=== PATIENT | female | born 1955 | race Caucasian/White ===

== ENCOUNTER 2017-09-28 17:43 | Observation (INO) | payer OTHER ==
[~2017-09-28] VITALS: Ht 160 cm; Wt 68.6 kg
[~2017-09-28 17:43] MED LIST: ADVAIR 100/501 DISK IH; ADVAIR HFA 115-28 GM; ADVIL,NUPRIN,M200 MG PO; AMITRIPTYLINE H10 MG PO; AMLODIPINE BESY10 MG PO; AMLODIPINE BESYL5 MG PO; AMOXICILLIN500 MG PO; ASPIR 8181 M1 PO; ASPIR-LOW81 MG PO; ASPIR-TRIN325 MG PO; ASPIRIN EC325 MG PO; ASPIRIN81 M2 PO; ATORVASTATIN CA10 MG PO; ATORVASTATIN CA40 MG PO; Advair HFA 115/21 IH; BACTRIM,SEPT1 TABLET PO; CARAFATE1 GM PO; CLOPIDOGREL75 MG PO; DAILY VITAMIN1 EAC8 PO; DOCUSATE SODIU100 MG PO; DOXYCYCLINE HY100 MG PO; ENDOCET 5-3251 EACH PO; FAMOTIDINE20 MG PO; FERREX 150150 MG PO; FERROUS SULFAT325 MG PO; FLONASE16 GM NS; FLORASTOR250 MG PO; Flagyl PO; GABAPENTIN100 MG PO; GABAPENTIN300 MG PO; HYDREA500 MG PO; HYDROXYUREA500 MG PO; INDOMETHACIN50 MG PO; IRON325 M1 PO; KEFLEX500 MG PO; LISINOPRIL10 MG PO; LO-DOSE ASPIRIN81 M1 PO; LO-DOSE ASPIRIN81 M2 PO; LOPRESSOR25 MG PO; Levaquin PO; MECLIZINE HCL25 M2 NG; MECLIZINE HCL25 MG PO; METOPROLOL TAR100 MG PO; METOPROLOL TART25 MG PO; MOTRIN IB200 MG PO; MULTIPLE VITAM1 EACH PO; Medrol PO; NEURONTIN100 MG PO; NICODERM CQ1 EAC1 TD; NICODERM CQ1 EAC2 TD; NICOTINE PATCH1 EAC2 TD; NIFEREX-150,FE150 MG PO; NOHOMEMEDS; OxyCONTIN PO; PANTOPRAZOLE SO40 MG PO; PLAVIX75 MG PO; PRAVASTATIN SOD40 MG PO; PREDNISONE20 M1 PO; PREDNISONE20 MG PO; PROAIR HFA8.5 GM IH; PROTONIX40 MG PO; RANITIDINE HCL150 MG PO; Remeron PO; SENNA S TABLET1 EACH PO; SEPTRA DS TABL1 EACH PO; SIMVASTATIN10 M1 PO; ST. JOSEPH ASPI81 MG PO; SUCRALFATE1 GM/10 ML PO; SULFAMETHOXAZO1 EACH PO; THERAGRAN1 TABLET PO; TYLENOL ARTHRI650 MG PO; TYLENOL EXTRA500 MG PO; TYLENOL REGULA325 MG PO; TYLENOL WITH C1 EACH PO; VITAMIN C250 MG PO; ZESTRIL30 MG PO; ZITHROMAX Z-PA250 MG PO; ZITHROMAX250 MG PO; ZOCOR10 M1 PO; ZOCOR10 MG PO; [UNRECOGNIZED DRUG - OTHER] PO; [UNRECOGNIZED DRUG - REMARK]; [UNRECOGNIZED DRUG - REMARK] PO; oxyCODONE PO
[2017-09-28 19:12] LABS: HEMATOCRIT 48.3 % (36.0-46.0); HEMOGLOBIN 15.8 G/DL (11.9-15.5); MCH 32.2 PG (29.0-34.0); MCHC 32.7 G/DL (30.0-36.0); MCV 98.4 FL (83-99); RBC DIS.WIDTH-CV 13.9 % (11.8-14.6); RBC DIS.WIDTH-SD 50.4 % (39-53); RED BLOOD COUNT 4.91 M/uL (3.80-5.20); WHITE BLOOD COUNT 10.7 K/uL (4.1-10.2)
[2017-09-28 19:13] LABS: CHLORIDE 104 mEq/L (99-109); POTASSIUM 4.5 mEq/L (3.7-5.4); SODIUM 142 mEq/L (136-147)
[2017-09-28 19:15] LABS: GLUCOSE 99 mg/dL (70-99)
[2017-09-28 19:19] LABS: CREATININE 1.3 mg/dL (0.6-1.3); GFR ESTIMATE (CALCULATED) 44 mL/min/
[2017-09-28 19:20] LABS: UREA NITROGEN (BUN) 20 mg/dL (9-23)
[2017-09-28 19:27] LABS: TROP-I INTERPRETATION NEGATIVE; TROPONIN-I 0.01 ng/mL (0.0-0.30)
[2017-09-28 20:14] LABS: PLAT.SUFFICIENCY INCREASED
[2017-09-28 20:17] LABS: PLATELET COUNT 1096 K/uL (156-360)
[2017-09-28 22:28] LABS: APPEARANCE CLEAR ((CLEAR)); BILIRUBIN NEGATIVE; BLOOD NEGATIVE; COLOR YELLOW ((YELLOW)); GLUCOSE (STRIP) NEGATIVE; KETONES NEGATIVE; LEUKOCYTES LARGE; NITRITE NEGATIVE; PROTEIN (STRIP) 30; SPECIFIC GRAVITY 1.006 (1.000-1.030); UROBILINOGEN 0.2 MG/DL (0.2-1.0)
[2017-09-28 22:35] LABS: BACTERIA 2+ /HPF; EPITHELIAL CELLS RARE /HPF; MUCUS TRACE /LPF; RED BLOOD CELLS 0-5 /HPF (0-5); WHITE BLOOD CELLS 20-30 /HPF (0-5)
[2017-09-28] MEDS ORDERED: CHLORTHALIDONE25 MG PO (23:27)
[2017-09-29 02:04] VITALS: BP 142/79
[2017-09-29 02:10] LABS: TROP-I INTERPRETATION NEGATIVE; TROPONIN-I 0.01 ng/mL (0.0-0.30)
[2017-09-29 07:51] VITALS: BP 146/73
[2017-09-29 07:56] LABS: TROP-I INTERPRETATION NEGATIVE; TROPONIN-I < 0.01 ng/mL (0.0-0.30)
[2017-09-29 08:42] LABS: HEMATOCRIT 50.3 % (36.0-46.0); HEMOGLOBIN 15.9 G/DL (11.9-15.5); MCH 31.7 PG (29.0-34.0); MCHC 31.6 G/DL (30.0-36.0); MCV 100.4 FL (83-99); RBC DIS.WIDTH-SD 51.5 % (39-53); RED BLOOD COUNT 5.01 M/uL (3.80-5.20); WHITE BLOOD COUNT 10.7 K/uL (4.1-10.2)
[2017-09-29 09:58] LABS: PLAT.SUFFICIENCY INCREASED
[2017-09-29 10:15] LABS: PLATELET COUNT 1117 K/uL (156-360)
[2017-09-29 11:36] VITALS: BP 111/58
[2017-09-29 16:11] VITALS: BP 121/64
[2017-09-29 19:00] VITALS: BP 121/68
[2017-09-30 00:38] VITALS: BP 113/53
[2017-09-30 04:25] VITALS: BP 108/63
[2017-09-30 05:40] LABS: BASOPHIL (%) 1.9 % (0-1); BASOPHIL COUNT 0.1 K/uL (0-0.1); EOSINOPHIL (%) 4.1 % (0-5); EOSINOPHIL COUNT 0.3 K/uL (0-0.3); HEMATOCRIT 42.7 % (36.0-46.0); IMMATURE GRANULOCYTE (%) 0.3 % (0.0-0.7); LYMPHOCYTE (%) 18.3 % (15-42); LYMPHOCYTE COUNT 1.3 K/uL (1.0-2.8); MCH 31.5 PG (29.0-34.0); MCHC 32.1 G/DL (30.0-36.0); MCV 98.2 FL (83-99); MONOCYTE (%) 7.4 % (3-12); MONOCYTE COUNT 0.5 K/uL (0-0.8); NEUTROPHIL COUNT 4.8 K/uL (1.8-6.4); PLATELET COUNT 810 K/uL (156-360); RBC DIS.WIDTH-SD 50.8 % (39-53); RED BLOOD COUNT 4.35 M/uL (3.80-5.20)
[2017-09-30 05:43] LABS: HEMOGLOBIN 13.7 G/DL (11.9-15.5)
[2017-09-30 05:55] LABS: CHLORIDE 107 MEQ/L (99-109); CREATININE 1.4 MG/DL (0.6-1.3); GFR ESTIMATE (CALCULATED) 41 mL/min/; GLUCOSE 90 mg/dL (70-99); POTASSIUM 4.5 MEQ/L (3.7-5.4); SODIUM 140 MEQ/L (136-147); UREA NITROGEN (BUN) 29 mg/dL (9-23)
[2017-09-30 07:20] VITALS: BP 157/84
[2017-09-30] MEDS ORDERED: BACTRIM,SEPT1 TABLET PO (09:15)
[2017-09-30 11:46] VITALS: BP 132/60
[2017-09-30 12:32] LABS: CREATININE 1.3 MG/DL (0.6-1.3)
== END 2017-09-30 16:03 | disposition home or self-care (01) ==
LOC: EME 17:43 → EDOF 09-29 00:08 → ENRESERV 09-29 00:12 → 4SOUTH 09-29 01:21
PROVIDERS: Emergency Medicine; Internal Medicine; Physician Assistant
DX: R07.89 Other chest pain (principal); D47.3 Essential (hemorrhagic) thrombocythemia; N39.0 Urinary tract infection, site not specified; M50.10 Cervical disc disorder with radiculopathy, unspecified cervical region; I69.351 Hemiplegia and hemiparesis following cerebral infarction affecting right dominant side; I69.322 Dysarthria following cerebral infarction; I10 Essential (primary) hypertension; R51 Headache; E04.1 Nontoxic single thyroid nodule; K21.9 Gastro-esophageal reflux disease without esophagitis; J44.9 Chronic obstructive pulmonary disease, unspecified; Z90.49 Acquired absence of other specified parts of digestive tract; Z89.421 Acquired absence of other right toe(s); Z89.411 Acquired absence of right great toe; Z87.891 Personal history of nicotine dependence; Z79.82 Long term (current) use of aspirin; Z88.1 Allergy status to other antibiotic agents
CPT/HCPCS: 70450; 71046; 72125; 74176; 80048; 81003; 82565; 84484; 85025; 85027; 93005; 99281; 99285; G0378; J0696; J1644; J2405; J7030

== ENCOUNTER 2017-10-29 14:35 | Inpatient (IN) | payer OTHER ==
[~2017-10-29] VITALS: Ht 165.1 cm; Wt 66.6 kg
[~2017-10-29 14:35] MED LIST changes: +CHLORTHALIDONE25 MG PO
[2017-10-29 16:14] LABS: HEMOGLOBIN 15.4 G/DL (11.9-15.5); MCH 31.3 PG (29.0-34.0); MCHC 32.8 G/DL (30.0-36.0); MCV 95.5 FL (83-99); PLATELET COUNT 750 K/uL (156-360); RBC DIS.WIDTH-CV 15.7 % (11.8-14.6); RBC DIS.WIDTH-SD 53.8 % (39-53); RED BLOOD COUNT 4.92 M/uL (3.80-5.20); WHITE BLOOD COUNT 8.4 K/uL (4.1-10.2)
[2017-10-29 16:24] LABS: CHLORIDE 103 mEq/L (99-109); POTASSIUM 3.7 mEq/L (3.7-5.4); SODIUM 140 mEq/L (136-147)
[2017-10-29 16:26] LABS: GLUCOSE 118 mg/dL (70-99)
[2017-10-29 16:29] LABS: SERUM ETHYL ALCOHOL < 10 mg/dL
[2017-10-29 16:30] LABS: CREATININE 1.4 mg/dL (0.6-1.3); GFR ESTIMATE (CALCULATED) 41 mL/min/
[2017-10-29 16:31] LABS: UREA NITROGEN (BUN) 18 mg/dL (9-23)
[2017-10-29 18:12] LABS: APPEARANCE CLEAR ((CLEAR)); BILIRUBIN NEGATIVE; BLOOD NEGATIVE; COLOR YELLOW ((YELLOW)); GLUCOSE (STRIP) NEGATIVE; KETONES NEGATIVE; LEUKOCYTES NEGATIVE; NITRITE NEGATIVE; PROTEIN (STRIP) 30; SPECIFIC GRAVITY 1.006 (1.000-1.030); UCUL ADDED? NO; UROBILINOGEN 0.2 MG/DL (0.2-1.0)
[2017-10-29 18:20] LABS: AMPHETAMINE NEGATIVE (500 ng/mL); BARBITURATES NEGATIVE (200 ng/mL); BENZODIAZEPINES NEGATIVE (150 ng/mL); BUPRENORPHINE NEGATIVE (10 ng/mL); COCAINE NEGATIVE (150 ng/mL); METHADONE NEGATIVE (200 ng/mL); METHAMPHETAMINE NEGATIVE (500 ng/mL); OPIATES (MORPHINE) NEGATIVE (100 ng/mL); OXYCODONE NEGATIVE (100 ng/mL); PHENCYCLIDINE NEGATIVE (25 ng/mL); PROPOXYPHENE NEGATIVE (300 ng/mL); THC CANNABINOIDS NEGATIVE (50 ng/mL); TRICYCLIC ANTIDEPRESSANTS NEGATIVE (300 ng/mL)
[2017-10-29 20:27] VITALS: BP 131/78
[2017-10-30 08:05] VITALS: BP 105/57
[2017-10-30 16:22] VITALS: BP 136/66
[2017-10-31 07:48] VITALS: BP 112/70
[2017-10-31 15:39] VITALS: BP 140/70
[2017-11-01 07:29] VITALS: BP 124/74
[2017-11-01 14:51] VITALS: BP 111/55
[2017-11-02 08:31] VITALS: BP 115/64
[2017-11-02 16:55] VITALS: BP 121/66
[2017-11-03 08:26] VITALS: BP 157/78
[2017-11-03 16:05] VITALS: BP 123/63
[2017-11-04 08:30] VITALS: BP 143/66
[2017-11-05 07:36] VITALS: BP 121/69
[2017-11-05] MEDS ORDERED: ZOLOFT100 MG PO (09:29)
== END 2017-11-05 15:40 | disposition home or self-care (01) | DRG 882 ==
LOC: EME 14:35 → 1WEST 17:49 → EDOF 17:49 → ENRESERV 19:50 → 1WEST 20:05
PROVIDERS: Emergency Medicine
DX: F43.23 Adjustment disorder with mixed anxiety and depressed mood (principal); R45.851 Suicidal ideations; E78.5 Hyperlipidemia, unspecified; F32.9 Major depressive disorder, single episode, unspecified; J44.9 Chronic obstructive pulmonary disease, unspecified; T76.11XA Adult physical abuse, suspected, initial encounter; I10 Essential (primary) hypertension; I69.351 Hemiplegia and hemiparesis following cerebral infarction affecting right dominant side; Z90.49 Acquired absence of other specified parts of digestive tract; Z89.421 Acquired absence of other right toe(s); Z87.891 Personal history of nicotine dependence; I69.320 Aphasia following cerebral infarction; I69.322 Dysarthria following cerebral infarction; I69.392 Facial weakness following cerebral infarction; I73.9 Peripheral vascular disease, unspecified
CPT/HCPCS: 80048; 81003; 85027; 87086; 90839; 97150 GO; 97165 GO; 97530 GO; 99281; 99285; G0480